=== PATIENT | male | born 1945 | race Two or more races ===

== ENCOUNTER 2021-04-13 19:52 | Emergency (ER) | payer MEDICARE ==
[~2021-04-13] VITALS: Ht 180.3 cm; Wt 70.0 kg
[2021-04-13 20:02] VITALS: BP 163/115
[2021-04-13 20:43] LABS: BASOPHILS % (AUTO) 0.2 % (0-1); EOSINOPHILS # (AUTO) 1.5 X10'3 (0-0.9); EOSINOPHILS % (AUTO) 13.8 % (0-6); HEMATOCRIT 51.3 % (42.0-52.0); HEMOGLOBIN 17.1 g/dl (14.0-17.9); LYMPHOCYTES # (AUTO) 1.1 X10'3 (1.1-4.8); LYMPHOCYTES % (AUTO) 9.8 % (21-51); MEAN CORPUSCULAR HEMOGLOBIN 31.8 PG (27.0-31.0); MEAN CORPUSCULAR HGB CONC 33.3 g/dL (33.0-36.5); MEAN CORPUSCULAR VOLUME 95.6 FL (78-98); MEAN PLATELET VOLUME 8.2 FL (7.4-10.4); MONOCYTES # (AUTO) 0.8 X10'3 (0-0.9); MONOCYTES % (AUTO) 7.3 % (2-12); NEUTROPHILS # (AUTO) 7.7 X10'3 (1.8-7.7); NEUTROPHILS % (AUTO) 68.9 % (42-75); PLATELET COUNT 270 X10'3 (140-440); RED BLOOD COUNT 5.37 X10'6 (4.70-6.10); RED CELL DISTRIBUTION WIDTH 15.3 % (11.5-14.5); WHITE BLOOD COUNT 11.1 X10'3 (4.5-11.0)
[2021-04-13 21:10] LABS: ALANINE AMINOTRANSFERASE 17 U/L (12-78); ALBUMIN 3.5 G/DL (3.4-5.0); ALKALINE PHOSPHATASE 105 IU/L (46-116); ANION GAP 10 (8-16); ASPARTATE AMINO TRANSFERASE 17 U/L (10-37); BILIRUBIN,TOTAL 0.5 MG/DL (0.1-1.0); BLOOD UREA NITROGEN 24 MG/DL (7-18); BUN/CREATININE RATIO 11.9 (5.4-32.0); CHLORIDE 107 MMOL/L (99-107); CREATININE 2.01 MG/DL (0.60-1.10); GLUCOSE 99 MG/DL (70-104); SODIUM 141 MMOL/L (135-145); TROPONIN I < 0.04 NG/ML (0.0-0.05); eGFR 33 ML/MIN
== END 2021-04-14 00:57 | disposition left against medical advice (07) ==
LOC: ER 19:53
DX: R21 Rash and other nonspecific skin eruption (principal); Z53.21 Procedure and treatment not carried out due to patient leaving prior to being seen by health care provider
CPT/HCPCS: 36415; 80053; 83880; 84484; 85025